=== PATIENT | male | born 1990 | race African-American/Black ===

== ENCOUNTER 2021-10-27 15:10 | Emergency (ER) | payer MEDICAID, OTHER ==
[~2021-10-27] VITALS: Ht 177.8 cm; Wt 68.0 kg
[2021-10-27] MEDS ORDERED: METHOCARBAMOL 500MG TABLET PO ONE (17:30)
[2021-10-27] MEDS ORDERED: KETOROLAC 60MG/2ML VIAL IM ONE (17:30)
[2021-10-27 17:44] VITALS: BP 139/77
[2021-10-27] MEDS ORDERED: NAPR-681 MT (18:12)
[2021-10-27] MEDS ORDERED: METH-773 MT (18:12)
== END 2021-10-27 18:29 | disposition home or self-care (01) ==
LOC: ER 15:10
DX: S16.1XXA Strain of muscle, fascia and tendon at neck level, initial encounter (principal); V49.9XXA Car occupant (driver) (passenger) injured in unspecified traffic accident, initial encounter; Y93.89 Activity, other specified; Y92.89 Other specified places as the place of occurrence of the external cause; Y99.8 Other external cause status
CPT/HCPCS: 73030; 96372; 99283; J1885